=== PATIENT | male | born 1955 | race Caucasian/White ===

== ENCOUNTER 2022-05-20 16:56 | Observation (INO) | payer MEDICARE ==
[2022-05-20 17:46] VITALS: BMI 30.1
[2022-05-20] MEDS ORDERED: Senokot S 8.6-50 MG TAB PO PRN (17:48)
[2022-05-20] MEDS ORDERED: Acetaminophen 325 MG TAB PO PRN (17:48)
[2022-05-20] MEDS ORDERED: Ondansetron PF 4 MG/2 ML Vial IVP PRN (17:48)
[2022-05-20] MEDS ORDERED: Acetaminophen 650 MG Suppository PR PRN (17:48)
[2022-05-20] MEDS ORDERED: Labetalol HCl 100 MG/20 ML VIAL SLOW IVP PRN (17:48)
[2022-05-20] MEDS ORDERED: Bisacodyl 5 MG TAB PO PRN (17:48)
[2022-05-20] MEDS ORDERED: hydrALAZINE 20 MG/ML VIAL SLOW IVP PRN (17:48)
[2022-05-20] MEDS ORDERED: Bisacodyl 10 MG SUPP PR PRN (17:48)
[2022-05-20] MEDS ORDERED: Dextrose 5% in Water 1,000 ML IV PRN (18:24)
[2022-05-20] MEDS ORDERED: HumaLOG 300 UNITS/3 ML VIAL SC PRN ×2 (18:24)
[2022-05-20] MEDS ORDERED: Dextrose 50% Abboject 50 ML SYRINGE SLOW IVP PRN (18:24)
[2022-05-20] MEDS: busPIRone HCl 5 MG TAB PO SCH (20:37)
[2022-05-20] MEDS: busPIRone HCl 15 MG TAB PO SCH (20:38)
[2022-05-20] MEDS ORDERED: Atorvastatin Calcium 40 MG TAB PO SCH (21:00)
[2022-05-20] MEDS ORDERED: busPIRone HCl 5 MG TAB PO SCH (21:00)
[2022-05-21 05:53] LABS: ALT (SGPT) 22 U/L (8-55); AST (SGOT) 18 U/L (5-34); Albumin 4.1 g/dL (3.4-4.8); Alkaline Phosphatase 111 U/L (40-110); Anion Gap 17 mmol/L (10-20); BUN (Urea Nitrogen) 14 mg/dL (8.4-25.7); Calc. Creatinine Clearance 96 mL/min (70-130); Calcium 9.2 mg/dL (7.8-10.44); Carbon Dioxide 24 mmol/L (23-31); Cardiac Risk 4.1 (Less than 4.5); Chloride 103 mmol/L (98-107); Cholesterol 130 mg/dl (< 200 Desired); Estimated GFR 81; Globulin 2.8 g/dL (2.4-3.5); Glucose 193 mg/dL (80-115); HDL Cholesterol 32 mg/dL (>60 Neg Risk); LDL Cholesterol, Calculated 33 mg/dL; Potassium 3.5 mmol/L (3.5-5.1); Protein, Total 6.9 g/dL (5.8-8.1); Sodium 140 mmol/L (136-145); Triglycerides 325 mg/dL (Less than 150)
[2022-05-21] MEDS ORDERED: Levothyroxine Sodium 75 MCG TAB PO SCH (06:00)
[2022-05-21 06:07] LABS: Bilirubin, Total 0.2 mg/dL (0.2-1.2)
[2022-05-21] MEDS ORDERED: Aspirin 81 mg Enteric Coated Tablet PO SCH (09:00)
[2022-05-21] MEDS ORDERED: Aspirin 300 MG Suppository PR SCH (09:00)
[2022-05-21] MEDS ORDERED: Clopidogrel Bisulfate 75 MG TAB PO SCH (09:00)
[2022-05-21] MEDS: busPIRone HCl 5 MG TAB PO SCH (10:31)
[2022-05-21] MEDS: busPIRone HCl 15 MG TAB PO SCH (10:31)
[2022-05-21] MEDS ORDERED: Lorazepam 2 MG/ML VIAL SLOW IVP SCH (10:45)
[2022-05-21 11:45] LABS: Hemoglobin A1c 8.5 % (4.0-6.0)
[2022-05-21 15:01] VITALS: BP 144/79; TEMP 98.2
== END 2022-05-21 16:26 | disposition home or self-care (01) ==
LOC: CSHTELE 17:00 → INTOOBSV 17:00
PROVIDERS: ADMIT Family Medicine; ATTEND Family Medicine
DX: I69.322 Dysarthria following cerebral infarction (principal); I48.91 Unspecified atrial fibrillation; E11.51 Type 2 diabetes mellitus with diabetic peripheral angiopathy without gangrene; Z79.02 Long term (current) use of antithrombotics/antiplatelets; I50.20 Unspecified systolic (congestive) heart failure; E03.9 Hypothyroidism, unspecified; F17.220 Nicotine dependence, chewing tobacco, uncomplicated; Z79.01 Long term (current) use of anticoagulants; Z79.899 Other long term (current) drug therapy; Z79.82 Long term (current) use of aspirin; Z79.4 Long term (current) use of insulin; E66.9 Obesity, unspecified; Z68.30 Body mass index [BMI] 30.0-30.9, adult
CPT/HCPCS: 70544; 70551; 80053; 80061; 82962 ×2; 83036; 84443; 93005; 93306; 96372 ×2; 96374; G0378 ×2; 36416; 93010; J1650; J1815; J2060